=== PATIENT | female | born 1945 | race Caucasian/White ===

== ENCOUNTER 2021-10-20 08:55 | Outpatient (CLI) | payer MEDICARE | END 2021-10-20 08:56 | disposition home or self-care (01) | LOC: CSHMAMMO 08:55 | PROVIDERS: ATTEND Internal Medicine | DX: Z13.820 Encounter for screening for osteoporosis (principal); Z78.0 Asymptomatic menopausal state; M85.89 Other specified disorders of bone density and structure, multiple sites | CPT/HCPCS: 77080 ==

== ENCOUNTER 2022-03-09 11:42 | Outpatient (CLI) | payer MEDICARE | END 2022-03-09 11:43 | disposition home or self-care (01) | LOC: CSHMAMMO 11:42 | PROVIDERS: ATTEND Internal Medicine | DX: Z12.31 Encounter for screening mammogram for malignant neoplasm of breast (principal); Z80.3 Family history of malignant neoplasm of breast | CPT/HCPCS: 77063; 77067 ==

== ENCOUNTER 2023-04-07 09:30 | Outpatient (CLI) | payer MEDICARE | END 2023-04-07 09:31 | disposition home or self-care (01) | LOC: CSHMAMMO 09:30 | PROVIDERS: ATTEND Internal Medicine | DX: Z12.31 Encounter for screening mammogram for malignant neoplasm of breast (principal); Z80.3 Family history of malignant neoplasm of breast | CPT/HCPCS: 77063; 77067 ==

== ENCOUNTER 2023-10-28 12:06 | Outpatient (CLI) | payer MEDICARE ==
[2023-10-28] MEDS ORDERED: Iopamidol 300 61% 100 ML VIAL FS ONE (14:41)
== END 2023-10-28 12:07 | disposition home or self-care (01) ==
LOC: CSHCT 12:06
PROVIDERS: ATTEND Internal Medicine
DX: R10.31 Right lower quadrant pain (principal); K35.80 Unspecified acute appendicitis
CPT/HCPCS: 74177; 82565; Q9967

== ENCOUNTER 2023-10-28 16:25 | Observation (INO) | payer MEDICARE ==
[2023-10-28] MEDS ORDERED: Piperacillin/Tazobactam 4.5 GM VIAL ONE (17:35)
[2023-10-28 17:42] LABS: #Eosinphils 0.1 10x3/uL (0.0-0.5); #Monocytes 0.7 10x3/uL (0.0-1.1); #Neutrophils 2.9 10x3/uL (1.5-8.4); %Basophils 0.8 % (0.0-2.0); %Eosinophils 2.6 % (0.0-6.0); %Lymphocytes 25.3 % (18.0-47.0); %Monocytes 13.9 % (0.0-10.0); Hematocrit 32.5 % (34.9-44.5); Hemoglobin 11.3 g/dL (12.0-15.5); Mean Corpuscular HGB CONC 34.8 g/dL (32.0-36.0); Mean Corpuscular Hemoglobin 33.7 pg (27.0-33.0); Mean Platelet Volume 9.8 fl (7.4-10.4); Platelet Count 250 10x3/uL (150-450); RBC Distribution Width 13.9 % (11.5-14.5); Red Blood Cell (RBC) Count 3.35 10x6/uL (3.90-5.03); White Blood Cell (WBC) Count 5.1 10x3/uL (3.5-10.5)
[2023-10-28 17:56] LABS: ALT (SGPT) 12 U/L (8-55); AST (SGOT) 22 U/L (5-34); Albumin 4.1 g/dL (3.4-4.8); Alkaline Phosphatase 59 U/L (40-110); Anion Gap 14 mmol/L (10-20); BUN (Urea Nitrogen) 12 mg/dL (9.8-20.1); Bilirubin, Total 0.8 mg/dL (0.2-1.2); Calc. Creatinine Clearance 0 mL/min (70-130); Calcium 9.1 mg/dL (7.8-10.44); Carbon Dioxide 23 mmol/L (23-31); Chloride 106 mmol/L (98-107); Estimated GFR 81; Globulin 2.4 g/dL (2.4-3.5); Glucose 98 mg/dL (83-110); Lipase 38 U/L (8-78); Potassium 4.3 mmol/L (3.5-5.1); Protein, Total 6.5 g/dL (5.8-8.1); Sodium 139 mmol/L (136-145)
[2023-10-28 18:34] LABS: Bilirubin Neg (Negative); Blood, Urine Negative (Negative); Clarity Clear (Clear); Glucose, Urine (Dipstick) Normal (Negative); Ketone, Urine Negative (Negative); Leukocyte 25 (Negative); Nitrite Negative (Negative); Protein, Urine (Dipstick) Negative (Neg-Trace); Urobilinogen Normal mg/dL (Less than 2)
[2023-10-28 18:51] LABS: CAUTI Indications for Culture Pelvic or flank pain; RBC/HPF None Seen HPF (0-3); WBC/HPF 0-3 HPF (0-3)
[2023-10-28 18:53] LABS: Squamous Epithelial 0-3 HPF (0-3)
[2023-10-28 18:54] LABS: Bacteria/HPF None Seen HPF (None Seen); Urine Culture Reflex No No
[2023-10-28] MEDS ORDERED: Guaifenesin DM 100-10/5 ML UDCUP PO PRN (20:03)
[2023-10-28] MEDS ORDERED: Ondansetron PF 4 MG/2 ML Vial IVP PRN (20:03)
[2023-10-28] MEDS ORDERED: Acetaminophen 325 MG TAB PO PRN (20:03)
[2023-10-28] MEDS ORDERED: Calcium Carbonate 500 MG ChewTAB PO PRN (20:03)
[2023-10-28] MEDS ORDERED: HYDROcodone/Acetaminophen 5/325 mg Tablet PO PRN (20:03)
[2023-10-28] MEDS ORDERED: Morphine 2 MG/ML VIAL SLOW IVP PRN (20:05)
[2023-10-28] MEDS: sulfaSALAzine 500 MG TAB PO SCH (22:18)
[2023-10-28] MEDS: Atorvastatin Calcium 10 MG TAB PO SCH (22:18)
[2023-10-28] MEDS: Lactated Ringer's 1,000 ML IV SCH (22:18)
[2023-10-28] MEDS: Sotalol HCl 80 MG TAB PO SCH (22:19)
[2023-10-28] MEDS: Piperacillin/Tazobactam 3.375 GM in Sodium Chloride 0.9% 100 ML IVPB SCH (22:19)
[2023-10-28] MEDS: Temazepam 15 MG CAP PO SCH (22:19)
[2023-10-28] MEDS: Famotidine 20 MG TAB PO SCH (22:19)
[2023-10-28 22:31] VITALS: BMI 24.2
[2023-10-29] MEDS ORDERED: Piperacillin/Tazobactam 3.375 GM in Sodium Chloride 0.9% 100 ML IVPB SCH (01:00)
[2023-10-29 05:53] LABS: #Basophils 0.1 10x3/uL (0.0-0.2); #Eosinphils 0.2 10x3/uL (0.0-0.5); #Monocytes 0.8 10x3/uL (0.0-1.1); %Basophils 1.3 % (0.0-2.0); %Eosinophils 4.1 % (0.0-6.0); %Lymphocytes 34.1 % (18.0-47.0); %Monocytes 16.3 % (0.0-10.0); %Neutrophils 43.5 % (40.0-75.0); Hematocrit 30.2 % (34.9-44.5); Hemoglobin 10.5 g/dL (12.0-15.5); Mean Corpuscular HGB CONC 34.8 g/dL (32.0-36.0); Mean Corpuscular Hemoglobin 33.9 pg (27.0-33.0); Mean Corpuscular Volume 97.4 fl (81.6-98.3); Mean Platelet Volume 9.8 fl (7.4-10.4); Platelet Count 234 10x3/uL (150-450); RBC Distribution Width 13.7 % (11.5-14.5); White Blood Cell (WBC) Count 4.6 10x3/uL (3.5-10.5)
[2023-10-29 06:01] LABS: Anion Gap 14 mmol/L (10-20); BUN (Urea Nitrogen) 11 mg/dL (9.8-20.1); Calc. Creatinine Clearance 66 mL/min (70-130); Calcium 8.6 mg/dL (7.8-10.44); Carbon Dioxide 23 mmol/L (23-31); Chloride 108 mmol/L (98-107); Estimated GFR 82; Glucose 85 mg/dL (83-110); Potassium 3.8 mmol/L (3.5-5.1); Sodium 141 mmol/L (136-145)
[2023-10-29] MEDS ORDERED: CALCIUM CITRATE 250 MG PO SCH (09:00)
[2023-10-29] MEDS ORDERED: Fish Oil 1,000 MG CAP PO SCH (09:00)
[2023-10-29] MEDS ORDERED: Multivit, Therapeutic 1 TAB PO SCH (09:00)
[2023-10-29] MEDS ORDERED: Cholecalciferol 1,000 UNITS (25 MCG) TAB PO SCH (09:00)
[2023-10-29 14:09] VITALS: BP 153/67; TEMP 97.6
== END 2023-10-29 14:09 | disposition home or self-care (01) ==
LOC: CSHERS 16:25 → CSHERHOLD 20:02 → CSHTELE 21:55
PROVIDERS: ADMIT Student in an Organized Health Care Education/Training Program; ATTEND Nurse Practitioner Family
DX: K35.80 Unspecified acute appendicitis (principal); I10 Essential (primary) hypertension; I35.0 Nonrheumatic aortic (valve) stenosis; E78.5 Hyperlipidemia, unspecified; I48.0 Paroxysmal atrial fibrillation; I49.5 Sick sinus syndrome; Z95.0 Presence of cardiac pacemaker; Z90.89 Acquired absence of other organs; Z91.048 Other nonmedicinal substance allergy status; Z79.899 Other long term (current) drug therapy; R10.31 Right lower quadrant pain
CPT/HCPCS: 80048; 80053; 81001; 83690; 85025 ×2; 96365; 96376 ×2; 99284; G0378 ×3; 36415; 74177; 82565; J2543; J3490; J7120; Q9967